=== PATIENT | female | born 1935 | race Caucasian/White ===

== ENCOUNTER 2016-09-10 12:21 | Inpatient (IN) ==
[2016-09-10 13:18] LABS: MANUAL DIFF NEEDED? NO; URINE MICRO REVIEW NEEDED? NO; URINE SOURCE CLEAN CATCH
[2016-09-10 13:21] LABS: BILIRUBIN URINE NEGATIVE (NEGATIVE); BLOOD URINE NEGATIVE (NEGATIVE); COLOR YELLOW; GLUCOSE URINE NEGATIVE (NEGATIVE); LEUKOCYTES URINE SMALL (NEGATIVE); NITRITE URINE NEGATIVE (NEGATIVE); PROTEIN URINE NEGATIVE (NEGATIVE); SP GRAVITY URINE 1.015; TURBIDITY URINE CLEAR (CLEAR); UROBILINOGEN URINE NORMAL (NORMAL)
[2016-09-10 13:22] LABS: UR EPITHELIAL CELLS <10 /HPF (<10); URINE BACTERIA 1+ /HPF; URINE CULTURE NEEDED? YES; URINE RBC <10 /HPF (<10)
[2016-09-10 13:26] LABS: INR 1.25; PROTIME 13.3 Seconds (9.2-11.7); PTT 26.6 Seconds (22.0-36.0)
[2016-09-10 13:31] LABS: BASO% 0.2 % (0.0-0.8); EOS# 0.04 X1000 (0.0-0.7); EOS% 0.9 % (0.0-10.0); HEMATOCRIT 34.4 % (37.0-47.0); HEMOGLOBIN 11.7 g/dL (12.0-16.0); LYMPH# 1.15 X1000 (1.2-3.4); LYMPH% 25.4 % (20.5-51.1); MCH 34.6 PG (27-31); MCV 101.8 FL (81-99); MONO# 0.45 X1000 (0.11-0.59); MONO% 9.9 % (1.7-9.3); MPV 10.2 FL (7.4-10.4); NEUT% 63.6 % (42.2-75.2); PLT 92 X1000 (130-400); RBC 3.38 XMIL (4.2-5.4)
[2016-09-10 13:34] LABS: UR AMPHETAMINES QUAL NONE DETECTED (NONE DETECT); UR BARBITUATES QUAL NONE DETECTED (NONE DETECT); UR BENZODIAZEPIN QUAL NONE DETECTED (NONE DETECT); UR CANNABINOIDS QUAL NONE DETECTED (NONE DETECT); UR COCAINE QUAL NONE DETECTED (NONE DETECT); UR METHADONE QUAL NONE DETECTED (NONE DETECT); UR OPIATES QUAL NONE DETECTED (NONE DETECT); UR OXYCODONE QUAL NONE DETECTED (NONE DETECT); UR PCP QUAL NONE DETECTED (NONE DETECT)
[2016-09-10 13:56] LABS: ALBUMIN 3.4 g/dL (3.5-5.0); CALCIUM 10.3 mg/dL (8.8-10.2); POTASSIUM 3.9 mmol/L (3.5-5.1); TOTAL BILIRUBIN 2.1 mg/dL (0.20-1.00); TOTAL PROTEIN 6.3 g/dL (6.3-8.3)
--- NOTE | 2016-09-10 14:50 | PROVIDER DOCUMENTATION ---
HPI-Psychological Disorder - General Source: patient, family - History of Present Illness-Psych Onset/Duration: reports: this morning Timing: reports: still present Severity: reports: mild Situational problems related to:: reports: N/A Psychiatric Complaints: reports: confused Substance Use: reports: denies Previous psych related hospitalizations?: No Patient arrived by:: private car (brought by daughter) Similar Symptoms Previously?: No Recently seen or treated by another doctor?: No <Jennifer Vuong - Last Filed: 09/10/16 17:54> <Elliott Kahn - Last Filed: 09/10/16 18:21> - General Chief Complaint: Altered Mental Status Stated Complaint: confusion Time Seen by Provider: 09/10/16 14:14 Allergies/Adverse Reactions: Patient Allergies Allergy/AdvReac Type Severity Reaction Status Date / Time No Known Allergies Allergy Verified 09/10/16 13:11 Home Medications: Home Medication List Medication Instructions Recorded Confirmed Last Taken Type Furosemide [Lasix] 20 mg PO DAILY 09/10/16 09/10/16 09/10/16 07:00 History Irbesartan [Avapro] 150 mg PO QAM 09/10/16 09/10/16 09/10/16 07:00 History Lactulose 30 ml PO BID 09/10/16 09/10/16 09/10/16 07:00 History Spironolactone 100 mg PO QAM 09/10/16 09/10/16 09/10/16 07:00 History - History of Present Illness-Psych Nature of Presenting Problem: 80 yof presents with complaint of confusion. Daughter states she went to wake pt up this morning and notice she was confused.Daughter states she was speaking about subjects that did not make sense.pt denies headache or dizziness (Jennifer Vuong) Review of Systems - Adult - REVIEW OF SYSTEMS - ADULT Constitutional: denies: chills, fever, fatique Eyes: reports: no symptoms reported Ears, Nose, Mouth & Throat: reports: no symptoms reported Cardiovascular: reports: no symptoms reported Respiratory: reports: no symptoms reported Gastrointestinal: reports: no symptoms reported Genitourinary: reports: incontinence. denies: flank pain, urinary retention Musculoskeletal: reports: no symptoms reported Integumentary: reports: no symptoms reported Neurological: denies: dizziness/vertigo, headache/migraines, slurred speech Psychiatric: reports: no symptoms reported Endocrine: reports: no symptoms reported Hematologic/Lymphatic: reports: no symptoms reported Allergic/Immunologic: reports: no symptoms reported All Other Systems: Reviewed and Negative <Jennifer Vuong - Last Filed: 09/10/16 17:54> Past History - Adult - PAST MEDICAL HISTORY-ADULT Review of Records: reports: Old Records Reviewed, Nursing Assessment Review, Medications Reviewed Major Childhood Illnesses: reports: denies history Cardiovascular: reports: A-Fib, HTN Gastrointestinal: reports: GERD, other (cirrhosis of liver) Musculoskeletal: reports: osteoporosis Endocrine/Immune: reports: other (chr) - PRIOR SURGERIES/PROCEDURES Surgical/Procedure History: reports: other (total knee, metal daniela right knee shoulder hip) - IMMUNIZATION STATUS Childhood Immunizations: See Nurse Assessment Flu Vaccine: See Nurse Assessment - FAMILY HISTORY Family History: reviewed, not pertinent - SOCIAL HISTORY Smoking: denies Substance Use: denies Living Situation: family <Jennifer Vuong - Last Filed: 09/10/16 17:54> Physical Exam-Psych Focus - Physical Exam-Psych Initial Vital Signs Reviewed: Yes Appearance: appropriate appearance, appropriate insight, neat, no apparent distress, alert, slow to respond Neurological: alert, normal mood/affect, calm, 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, oriented x 3 Behavior/Eye Contact/Speech: cooperative, good eye contact, normal speech Thoughts/Hallucinations: no apparent hallucination HENMT: normocephalic/atraumatic, moist mucous membranes, normal ENT inspection, TMs normal, pharynx normal Neck: non-tender, full range of motion, supple, normal inspection Respiratory: chest non-tender, lungs clear, normal breath sounds, no pleuratic chest pain, no respiratory distress, no accessory muscle use Cardiovascular: normal peripheral pulses, regular rate, rhythm, no edema, no gallop, no JVD, no murmur Abdominal Exam: normal bowel sounds, non tender, soft, no organomegaly, no pulsatile mass Lymphatic: no adenopathy Back Exam: normal inspection, no CVA tenderness, no vertebral tenderness Extremity: normal range of motion, non-tender, normal inspection Integumentary: normal color, normal turgor, warm/dry <Jennifer Vuong - Last Filed: 09/10/16 17:54> Departure <Jennifer Vuong - Last Filed: 09/10/16 17:54> - Departure Time of Disposition Order: 18:20 <Elliott Kahn - Last Filed: 09/10/16 18:21> - Departure Referrals: Edwin Maria MD [Primary Care Provider] - Forms: Return to School/Parent Work Attestation - Scribe Verification/Attestation Scribe:: Jennifer Vuong Acting as Scribe for:: Elliott Kahn Scribe documention review:: This chart was documented by a scribe and accurately reflects the service the provider performed and the decisions made by the provider. <Jennifer Vuong - Last Filed: 09/10/16 17:54> Physician Attestation
[2016-09-10] MEDS ORDERED: LACTULOSE PO ONE (16:38)
[2016-09-10] MEDS ORDERED: LASIX IV ONE (16:38)
--- NOTE | 2016-09-10 18:43 | PROVIDER DOCUMENTATION ---
HPI-Neurological Disorder - General Chief Complaint: Altered Mental Status Stated Complaint: confusion Time Seen by Provider: 09/10/16 14:14 Source: patient, family Allergies/Adverse Reactions: Patient Allergies Allergy/AdvReac Type Severity Reaction Status Date / Time No Known Allergies Allergy Verified 09/10/16 13:11 Home Medications: Home Medication List Medication Instructions Recorded Confirmed Last Taken Type Furosemide [Lasix] 20 mg PO DAILY 09/10/16 09/10/16 09/10/16 07:00 History Irbesartan [Avapro] 150 mg PO QAM 09/10/16 09/10/16 09/10/16 07:00 History Lactulose 30 ml PO BID 09/10/16 09/10/16 09/10/16 07:00 History Spironolactone 100 mg PO QAM 09/10/16 09/10/16 09/10/16 07:00 History - History of Present Illness-Neuro Nature of Presenting Problem: 80 Y/O F PRESENTED TO ER WITH HER FAMILY COMPLAINING OF A MOMENTARY CONFUSION AND MAYBE SLURRED SPEECH AFTER SHE WOKE UP THIS MORNING. HER DAUGHTER NOTICED ALSO THAT SHE IS NOT FOLLOWING HER COMMANDS AND THAT SHE IS TALKING NON-SENSE. PATIENT ADMITS TO CONFUSION. SHE DENIES ANY OTHER SYMPTOM HOWEVER. SHE HAS A HISTORY OF LIVER CIRRHOSIS STAGE 4 WELL AFIB FOR WHICH SHE IS NOT TAKING ANY ANTICOAGULATION. Timing: reports: gone now Character of Altered Mental Status: reports: confused, trouble concentrating Any recent trauma/injury?: reports: none Character of Deficits: reports: impaired speech New weakness or altered sensation location:: reports: none Cognitive Baseline: alert, oriented x3 Gait Baseline: uses a walker Associated Symptoms: reports: denies symptoms Similar Symptoms Previously?: No Recently seen or treated by another doctor?: Yes Review of Systems - Adult - REVIEW OF SYSTEMS - ADULT Constitutional: reports: no symptoms reported Eyes: reports: no symptoms reported Ears, Nose, Mouth & Throat: reports: no symptoms reported Cardiovascular: reports: irregular heart rate Gastrointestinal: reports: no symptoms reported Genitourinary: denies: dysuria, flank pain, hematuria, incontinence Musculoskeletal: reports: no symptoms reported Integumentary: reports: no symptoms reported Neurological: reports: slurred speech, other (APRAXIA) Allergic/Immunologic: reports: no symptoms reported Past History - Adult - PAST MEDICAL HISTORY-ADULT Review of Records: reports: Nursing Assessment Review, Medications Reviewed Major Childhood Illnesses: reports: denies history Cardiovascular: reports: A-Fib, HTN, other (SEE NURSE NOTE) Physical Exam- Neurological - Physical Exam-Neuro Initial Vital Signs Reviewed: Yes General Appearance: appears well, obese Eye Exam: right eye: abnormal EOM, bilateral eye: PERRL HENMT: normocephalic/atraumatic Head Injury: no evidence of injury Neck: full range of motion, supple Respiratory: lungs clear Cardiovascular: regular rate, rhythm Abdominal Exam: normal bowel sounds, non tender, soft Peripheral Pulses: dorsalis-pedis (R): 1+, dorsalis-pedis (L): 1+ Extremity: normal range of motion, 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 negative: facial asymmetry, facial droop Coordination/Gait: normal finger to nose Motor/Sensory: no motor deficit, no sensory deficit Integumentary: normal color Psych/Mental Status: normal mood/affect, oriented x 3 Progress - PLAN OF CARE/RESULTS Progress/Plan/Lab Results: Vital Signs - 24 hr 09/10/16 12:26 Temperature 97.7 F Pulse Rate 98 H Respiratory 18 Rate Blood Pressure 112/50 O2 Sat by Pulse 100 Oximetry Laboratory Tests 09/10/16 09/10/16 09/10/16 12:35 12:35 12:35 WBC 4.53 L RBC 3.38 L Hgb 11.7 L Hct 34.4 L MCV 101.8 H MCH 34.6 H MCHC 34.0 RDW Std Deviation 14.2 Plt Count 92 L MPV 10.2 Immature Gran % (Auto) 0.0 Neut % (Auto) 63.6 Lymph % (Auto) 25.4 [place] % (Auto) 9.9 H Eos % (Auto) 0.9 Baso % (Auto) 0.2 Immature Gran # (Auto) 0.00 Neut # (Auto) 2.88 Lymph # (Auto) 1.15 L [place] # (Auto) 0.45 Eos # (Auto) 0.04 Baso # (Auto) 0.01 PT INR PTT (Actin FS) Sodium 139 Potassium 3.9 Chloride 102 Carbon Dioxide 22 L Anion Gap 15 BUN 26 H Creatinine 1.0 H Estimated GFR/1.73 m2 54 BUN/Creatinine Ratio 26 Glucose 221 H Calculated Osmolality 289 Calcium 10.3 H Total Bilirubin 2.10 H AST 50 H ALT 35 Alkaline Phosphatase 85 Ammonia Creatine Kinase 46 Troponin T Total Protein 6.3 Albumin 3.4 L Globulin 2.9 Albumin/Globulin Ratio 1.2 Urine Source Urine Color Urine Turbidity Urine pH Ur Specific [place] Urine Protein Ur Glucose (Stick) Ur Ketones (Stick) Urine Blood Urine Nitrite Urine Bilirubin Urobilinogen Dipstick Urine Leukocytes Urine WBC (Auto) Urine RBC (Auto) U Epithel Cells (Auto) Urine Bacteria (Auto) Urine Opiates Screen Ur Oxycodone Screen Ur Methadone, Qual Ur Barbiturates Screen Ur Phencyclidine Scrn Ur Amphetamines Screen U Benzodiazepines Scrn Urine Cocaine Screen U Cannabinoids Screen Plasma/Serum Ethyl Alc 09/10/16 09/10/16 09/10/16 12:35 12:35 12:35 WBC RBC Hgb Hct MCV MCH MCHC RDW Std Deviation Plt Count MPV Immature Gran % (Auto) Neut % (Auto) Lymph % (Auto) [place] % (Auto) Eos % (Auto) Baso % (Auto) Immature Gran # (Auto) Neut # (Auto) Lymph # (Auto) [place] # (Auto) Eos # (Auto) Baso # (Auto) PT 13.3 H INR 1.25 PTT (Actin FS) 26.6 Sodium Potassium Chloride Carbon Dioxide Anion Gap BUN Creatinine Estimated GFR/1.73 m2 BUN/Creatinine Ratio Glucose Calculated Osmolality Calcium Total Bilirubin AST ALT Alkaline Phosphatase Ammonia Creatine Kinase Troponin T < 0.010 Total Protein Albumin Globulin Albumin/Globulin Ratio Urine Source CLEAN CATCH Urine Color YELLOW Urine Turbidity CLEAR Urine pH 6.0 Ur Specific [place] 1.015 Urine Protein NEGATIVE Ur Glucose (Stick) NEGATIVE Ur Ketones (Stick) NEGATIVE Urine Blood NEGATIVE Urine Nitrite NEGATIVE Urine Bilirubin NEGATIVE Urobilinogen Dipstick NORMAL Urine Leukocytes SMALL A Urine WBC (Auto) 10-20 A Urine RBC (Auto) <10 U Epithel Cells (Auto) <10 Urine Bacteria (Auto) 1+ Urine Opiates Screen Ur Oxycodone Screen Ur Methadone, Qual Ur Barbiturates Screen Ur Phencyclidine Scrn Ur Amphetamines Screen U Benzodiazepines Scrn Urine Cocaine Screen U Cannabinoids Screen Plasma/Serum Ethyl Alc 09/10/16 09/10/16 12:35 12:35 WBC RBC Hgb Hct MCV MCH MCHC RDW Std Deviation Plt Count MPV Immature Gran % (Auto) Neut % (Auto) Lymph % (Auto) [place] % (Auto) Eos % (Auto) Baso % (Auto) Immature Gran # (Auto) Neut # (Auto) Lymph # (Auto) [place] # (Auto) Eos # (Auto) Baso # (Auto) PT INR PTT (Actin FS) Sodium Potassium Chloride Carbon Dioxide Anion Gap BUN Creatinine Estimated GFR/1.73 m2 BUN/Creatinine Ratio Glucose Calculated Osmolality Calcium Total Bilirubin AST ALT Alkaline Phosphatase Ammonia 63 H Creatine Kinase Troponin T Total Protein Albumin Globulin Albumin/Globulin Ratio Urine Source Urine Color Urine Turbidity Urine pH Ur Specific [place] Urine Protein Ur Glucose (Stick) Ur Ketones (Stick) Urine Blood Urine Nitrite Urine Bilirubin Urobilinogen Dipstick Urine Leukocytes Urine WBC (Auto) Urine RBC (Auto) U Epithel Cells (Auto) Urine Bacteria (Auto) Urine Opiates Screen NONE DETECTED Ur Oxycodone Screen NONE DETECTED Ur Methadone, Qual NONE DETECTED Ur Barbiturates Screen NONE DETECTED Ur Phencyclidine Scrn NONE DETECTED Ur Amphetamines Screen NONE DETECTED U Benzodiazepines Scrn NONE DETECTED Urine Cocaine Screen NONE DETECTED U Cannabinoids Screen NONE DETECTED Plasma/Serum Ethyl Alc HEPATIC ENCEPHALOPATHY IS RULED OUT. LIVER ENZYMES AND AMMONIA ARE WITHIN NORMAL RANGE. IV LASIX AND ORAL LACTULOSE WERE GIVEN. CT HEAD IS PENDING TO RULE OUT STROKE. PATIENT WAS DIAGNOSED WITH AFIB RECENTLY HOWEVER HER PRIVATE DOCTORS FAVORED THAT SHE STAY OFF ANTICOAGULATION. I EXPLAINED TO THE FAMILY THE RISK AND BENEFIT FROM STARTING ANTICOAGULATION FOR AFIB TO LOWER RISK OF STROKE VS COMPLICATIONS THAT CAN OCCUR FROM ANTICOAGULATION ESPECIALLY HIGH RISK OF BLEEDING. WE ALL AGREED THAT THE PATIENT WILL BENEFIT MORE FROM NOT TAKING THE ANTICOAGULATION. - CONSULTS/PCP/HOSPITALIST Notification #1 *Consult/PCP/Hospitalist*: DR. PIKE Time Discussed: 18:44 Reason/Comments: tia Consult Disposition: Admit Departure - Departure Time of Disposition Order: 18:45 DIAGNOSIS: TIA (transient ischemic attack) Disposition: ADMITTED INPATIENT 09 Certified Medical Emergency: Emergent Condition: Fair Referrals: Edwin Maria MD [Primary Care Provider] - Forms: Return to School/Parent Work
--- NOTE | 2016-09-10 18:57 | Diag Imaging Result Document ---
PROCEDURE NAME: HEAD W/O CONTRAST - 09/10/[address]: A CT dose reduction protocol was used. COMPARISON: None. FINDINGS: The ventricles and sulci are normal in size and contour. No intracranial mass or hemorrhage. There is some mild scattered chronic microvascular disease. The skull is intact. The sinuses, mastoids, and middle ears are clear. IMPRESSION: No acute disease. [facility]
[2016-09-11] MEDS ORDERED: ZOFRAN IV PRN (00:29)
--- NOTE | 2016-09-11 03:56 | HISTORY AND PHYSICAL ---
CHIEF COMPLAINT: Altered mental status. HISTORY OF PRESENTING ILLNESS: A 80-year-old female with a history of cirrhosis, hypertension, atrial fibrillation, was brought to the emergency department due to 1-day history of patient having some confusion and some mental status changes. Family was concerned that they were told that previously when she has any confusion it could be related to her cirrhosis and subsequently brought her to the emergency department. She was evaluated in the ER. Due to her presenting symptoms, it was thought that she would need hospitalization for further management. At the time of my examination, she had denied any headache, fever, chills, chest pain, shortness of breath, hemoptysis or weight changes. States she feels better. PAST MEDICAL HISTORY: Cirrhosis, hypertension, atrial fibrillation. PAST SURGICAL HISTORY: None. ALLERGIES: No known drug allergies. CURRENT MEDICATIONS: As listed in MAR. SOCIAL HISTORY: She denies any history of smoking, alcohol or illicit drug use. FAMILY HISTORY: Positive for coronary disease in mother and father. REVIEW OF SYSTEMS: [employer] point systems is as in HPI. Other systems negative. PHYSICAL EXAMINATION: GENERAL: Cooperative, friendly female. She is resting more comfortably now. VITAL SIGNS: Temperature 97.7 degrees, pulse 98, respiration 18, blood pressure 112/50. She is saturating 100%. HEENT: Atraumatic, normocephalic. Extraocular movements intact. PERRLA. NECK: Supple. CHEST: Clear to auscultation. CARDIOVASCULAR: Regular rate and rhythm. ABDOMEN: Soft. Positive bowel sounds. EXTREMITIES: No edema. NEUROLOGIC: She is awake, alert, oriented x2. GENITOURINARY: No bladder distention. SKIN: Skin is warm. LABORATORIES AND STUDIES: Sodium 139, potassium 3.9, chloride 102, CO2 of 22, BUN is 26, creatinine is 1.0, glucose is 221. Ammonia level is 63. UA shows some small leukocytes and +1 bacteria. WBCs 4.53, hemoglobin 11.7, hematocrit 34.4, platelets 92,000. ASSESSMENT: A 80-year-old female with a history of cirrhosis, hypertension and atrial fibrillation who presented to emergency department with 1-day history of confusion. She will need hospitalization for further management. 1. Altered mental status, multifactorial. 2. Suspected transient ischemic attack. We need to rule out cerebrovascular accident. 3. Cirrhosis with mildly elevated ammonia level, possibly encephalopathy mild. 4. Suspected urinary tract infection. 5. History of atrial fibrillation. PLAN: 1. We will admit patient to medical floor with telemetry. 2. We will continue with neuro checks. 3. We will schedule patient for MRI of the brain. 4. Continue with lactulose. 5. We will start patient on empiric antibiotics and check urine cultures. 6. We will continue with rate control. 7. Put patient on DVT prophylaxis with SCD. 8. We will continue to follow and reassess.
[2016-09-11] MEDS: NS 1,000 ML IV SCH ×2 (04:58→21:41)
[2016-09-11] MEDS: ROCEPHIN 1 GM/NS 50 ML IV SCH (04:58)
[2016-09-11] MEDS: ALDACTONE PO SCH (09:00)
[2016-09-11] MEDS: LASIX PO SCH (09:00)
[2016-09-11] MEDS: AVAPRO PO SCH (09:00)
[2016-09-11] MEDS: LACTULOSE PO SCH ×2 (09:00→21:41)
--- NOTE | 2016-09-11 12:58 | PROGRESS NOTE ---
DATE: 09/11/2016 SUBJECTIVE: Ms. Koenig is a 80-year-old, I think she is followed by Dr. Maria and has a history of cirrhosis, hypertension, atrial fib. She was brought to the emergency room because of altered mental status and admitted. I believe it started on Tuesday and apparently was worse yesterday. She has some confusion. She did miss a dose or 2 of her lactulose. She has had some mental status changes. Apparently, initially, when they 1st found she has cirrhosis I think she had this kind of encephalopathy. No focal neurologic deficits reported. No sign of seizure activity. PAST MEDICAL HISTORY: Reviewed again. Cirrhosis, hypertension, atrial fibrillation. PAST SURGICAL HISTORY: No surgical history. PERTINENT DATA: On presentation there was question of TIA but I do not see any history of focal deficit. LABORATORY DATA: White count 4530, hematocrit 34, platelet count 92,000. Chemistries, sodium 139, potassium 3.9, chloride 102, bicarbonate 22, BUN 26, creatinine 1.0. Calcium is 10.3, AST 50, ALT 35, ammonia was 63 with normal being 11 to 51. OBJECTIVE: General: Today she is sitting up beside the bed. She said she feels back to normal. She is oriented x3. Her daughter was there and felt like she was back to baseline. Vital signs: Temperature 97.5 degrees, pulse 99, respirations 20, blood pressure 135/55. HEENT: Pupils are equal, round. CVP less than 6 cm. Lungs: Clear in all lung ny. Cardiovascular: Regular rate without murmur or S3. Abdomen: Soft. Skin: Warm and dry. Her lactulose, she is back on 30 mL twice a day. LABORATORY DATA: Noted, we reviewed all of her labs. She does have an elevated MCV, hemoglobin 11.7, hematocrit 34, she denies any abdominal pain. No fever or chills. ASSESSMENT/PLAN: Metabolic encephalopathy. Suspect this is related to the liver, may be multifactorial. She seems back to baseline. We are going to feed her a regular diet. No sign of subacute bacterial peritonitis or peritonitis in general. The bowels have been moving okay. Suspected urinary tract infection for which she is getting treated, ceftriaxone 1 g q.24 hours. She is on lactulose 30 mL b.i.d. Ammonia level was at 60, which is not terrible. She is on spironolactone 100 mg q.a.m. which she was on Lasix 20 mg daily, Avapro 150 mg q.a.m.
[2016-09-12] MEDS ORDERED: MELATONIN PO ONE (00:03)
[2016-09-12] MEDS: ROCEPHIN 1 GM/NS 50 ML IV SCH (00:24)
[2016-09-12 07:13] LABS: HEMATOCRIT 28.8 % (37.0-47.0); HEMOGLOBIN 9.7 g/dL (12.0-16.0); MCH 34.8 PG (27-31); MCHC 33.7 g/dL (33-37); MCV 103.2 FL (81-99); MPV 9.9 FL (7.4-10.4); RBC 2.79 XMIL (4.2-5.4)
[2016-09-12 07:52] LABS: AGAP 10; BUN 28 mg/dL (8-22); CHLORIDE 112 mmol/L (98-107); COSMO 289; POTASSIUM 3.6 mmol/L (3.5-5.1); SODIUM 142 mmol/L (136-145); TCO2 20 mmol/L (25-35)
[2016-09-12] MEDS: LASIX PO SCH (08:11)
[2016-09-12] MEDS: ALDACTONE PO SCH (08:11)
[2016-09-12] MEDS: LACTULOSE PO SCH ×2 (08:11→21:08)
[2016-09-12] MEDS: AVAPRO PO SCH (08:12)
[2016-09-12 08:16] LABS: CALCIUM 8.8 mg/dL (8.8-10.2)
--- NOTE | 2016-09-12 16:52 | PROGRESS NOTE ---
DATE: 09/12/2016 SUBJECTIVE: Ms. Koenig feels better. She feels pretty weak, but she is much better. No confusion, alert and oriented x3. Her granddaughter as it is, is in the room with her and she says she looks like she feels a lot better. She is eating well. OBJECTIVE: Vital signs: Temperature 98.4 degrees, pulse 80, respirations 20, blood pressure 120/53. HEENT: Pupils are equal and round. CVP less than 6 cm. Lungs: Clear in all lung ny. Cardiovascular: Regular rhythm and rate without murmur or S3. The urine output was 1200 mL. LABORATORY: From the , white count 4890, hematocrit 28, platelet count 66,000. Chemistry: Sodium 142, potassium 3.6, chloride 112, BUN 20, creatinine 0.6. ASSESSMENT AND PLAN: 1. Metabolic encephalopathy. I think this is largely related to her liver cirrhosis. She is back on her lactulose and seems to be doing much better. 2. General weakness. We will see how she does with Physical Therapy tomorrow. 3. Nutrition, appears to be doing good. 4. We are treating her for urinary tract infection. She did have some sediment, but no growth in the urine. Review of her orders, she is getting Rocephin 1 g every 24 hours, spironolactone 100 mg q.a.m., getting some fluid at 80 mL an hour, normal saline, lactulose 30 mL b.i.d., Lasix 20 mg a day, Avapro 150 mg q.a.m. 5. Review of her lab unremarkable from today. Creatinine 0.6. Continue present regimen. Start physical therapy tomorrow, see how we do. Maybe can go home tomorrow.
[2016-09-13] MEDS: ROCEPHIN 1 GM/NS 50 ML IV SCH (00:08)
[2016-09-13] MEDS: NS 1,000 ML IV SCH ×2 (00:24→06:28)
[2016-09-13] MEDS ORDERED: MELATONIN PO ONE (01:08)
[2016-09-13] MEDS: ALDACTONE PO SCH (08:26)
[2016-09-13] MEDS: LASIX PO SCH (08:26)
[2016-09-13] MEDS: LACTULOSE PO SCH (08:26)
[2016-09-13] MEDS: AVAPRO PO SCH (08:26)
--- NOTE | 2016-09-13 13:18 | DISCHARGE SUMMARY ---
ADMISSION DATE: 09/11/2016 DISCHARGE DATE: This is a 80-year-old female with history of cirrhosis, hypertension, and atrial fibrillation. Was brought into the emergency room on 09/11/2016 one day history of patient having some confusion and some mental status changes. In retrospect, I think she was concerned about hemorrhoids. Was not taking her lactulose. Ammonia level was 60-70. She seemed to be oriented and her lethargy improved fairly quickly. Just putting her back on her lactulose. She is a little bit generally weak. She did not have any respiratory difficulty. No sign of tenderness to suggest peritonitis. Gave her a little bit of fluids and she was eating well. [place] good. Mental status seemed to be back to normal. Does complain of some right knee pain. She is status post right total knee arthroplasty and she says this is pretty chronic. She did request home health and I did suggest she get a sitz bath for her hemorrhoids and then soak at least once a day. DISCHARGE MEDICATIONS: Really put her back on her Lasix 20 mg a day, Avapro 150 mg daily, lactulose 30 mL p.o. b.i.d., Prilosec 40 mg a day, Metamucil I think a packet a day as needed, and spironolactone 100 mg a day. PLAN: We will discharge her home on 09/13/2016. Follow up with her primary care.
[2016-09-13 15:03] VITALS: BP 135/60
== END 2016-09-13 15:51 | disposition home health service (06) ==
LOC: ED 12:21 → 3N 09-11 03:10
PROVIDERS: ATTEND Emergency Medicine

== ENCOUNTER 2017-02-08 09:37 | Inpatient (IN) ==
--- NOTE | 2017-02-08 10:34 | EKG Report ---
Test Performed on : 02/08/2017 10:20:43 AM Test Reason : No Order in [employer] Blood Pressure : / mmHG Vent. Rate : 054 BPM Atrial Rate : 054 BPM P-R Int : 154 ms QRS Dur : 076 ms QT Int : 418 ms P-R-T Axes : 093 -05 013 degrees QTc Int : 396 ms Sinus bradycardia. with premature atrial complexes. Low voltage QRS Cannot rule out Anterior infarct (cited on or before 23-DEC-2016) Abnormal ECG When compared with ECG of 23-DEC-2016 13:24, premature atrial complexes. are now present Vent. rate has decreased BY 26 BPM QT has shortened Unconfirmed Result
[2017-02-08] MEDS ORDERED: ZOFRAN IV ONE (10:41)
[2017-02-08] MEDS ORDERED: MORPHINE IV ONE (10:41)
--- NOTE | 2017-02-08 11:24 | Diag Imaging Result Doc PS360 ---
EXAM: CT ABDOMEN W/O CONTRAST HISTORY: back pain TECHNIQUE: CT of the abdomen without contrast with dose reduction (clarity.) COMMENT: There is cirrhosis with extensive varices particularly around the esophagus and gastric fundus. There is fluid in the right subphrenic space. There are calcified gallstones in the gallbladder. There is some stranding in the fat around the gallbladder and hepatic flexure of the colon. The appendix is normal in appearance. The spleen is within normal limits in size measuring slightly less than 12 cm in transverse dimension. There is no evidence of hydronephrosis or stones in the kidneys. No evidence of abdominal aortic aneurysm is present. There is some apparent fluid in a ventral or umbilical hernia. There is diverticulosis in the visualized portions of the left colon. There is osteopenia of the regional skeleton with vacuum joint phenomenon in the sacroiliac joints and degenerative disc changes in the lower lumbar spine. There is some atelectasis or fibrosis in the left lung base and posterior costophrenic sulcus of the right lower lobe. IMPRESSION: Cholelithiasis. The possibility of cholecystitis or right-sided colitis cannot be excluded. Cirrhosis with varices and mild ascites. Electronically signed by Madi Munroe 02/08/2017 11:22 AM
[2017-02-08 11:48] LABS: MANUAL DIFF NEEDED? NO
[2017-02-08 11:54] LABS: BASO% 0.1 % (0.0-0.8); EOS# 0.02 X1000 (0.0-0.7); EOS% 0.2 % (0.0-10.0); HEMATOCRIT 36.2 % (37.0-47.0); HEMOGLOBIN 12.2 g/dL (12.0-16.0); IMM GRAN# 0.03 X1000 (0.0-0.04); IMM GRAN% 0.4 % (0.0-0.5); LYMPH# 1.76 X1000 (1.2-3.4); LYMPH% 21.1 % (20.5-51.1); MCH 34.3 PG (27-31); MCHC 33.7 g/dL (33-37); MCV 101.7 FL (81-99); MONO# 1.19 X1000 (0.11-0.59); MONO% 14.3 % (1.7-9.3); MPV 9.6 FL (7.4-10.4); NEUT% 63.9 % (42.2-75.2); PLT 111 X1000 (130-400); RBC 3.56 XMIL (4.2-5.4)
[2017-02-08 11:58] LABS: INR 1.3; PROTIME 13.9 Seconds (9.2-11.7)
[2017-02-08 12:09] LABS: AGAP 10; ALKALINE PHOSPHATASE 120 U/L (32-104); BUN 21 mg/dL (8-22); CALCIUM 9.8 mg/dL (8.8-10.2); CHLORIDE 98 mmol/L (98-107); COSMO 273; GOT 53 U/L (10-30); GPT 35 U/L (10-36); LIPASE 52 U/L (13-60); POTASSIUM 4.1 mmol/L (3.5-5.1); SODIUM 134 mmol/L (136-145); TCO2 26 mmol/L (25-35); TOTAL BILIRUBIN 2.64 mg/dL (0.20-1.00); TOTAL PROTEIN 5.7 g/dL (6.3-8.3)
--- NOTE | 2017-02-08 12:37 | Diag Imaging Result Doc PS360 ---
CT PELVIS W/O CONTRAST - 02/08/2017 INDICATION: back pain TECHNIQUE: A CT dose reduction protocol was used. COMPARISON: None FINDINGS: There is inflammatory edema about the cecum consistent with colitis. There are numerous diverticula of the sigmoid colon. There is trace pelvic free fluid. Urinary bladder, uterus, and rectum are grossly normal. IMPRESSION: See findings. Electronically signed by Fransisco June 02/08/2017 12:34 PM
--- NOTE | 2017-02-08 12:44 | Diag Imaging Result Doc PS360 ---
EXAM: US GB < RUQ (LIMITED) HISTORY: abd pain, back pain, abnormal CT TECHNIQUE: Right upper quadrant ultrasound COMMENT: The pancreatic head and body are normal in appearance. The aorta and inferior vena cava are unremarkable. Liver is inhomogeneous and lobulated in contour. There is antegrade flow in the portal vein. The common bile duct is dilated at 9 mm. No identified intraductal stones are present. There is sludge throughout the gallbladder. The gallbladder is somewhat contracted and there is a positive sonographic Souza sign. Right kidneys without evidence of hydronephrosis or mass. IMPRESSION: 1. Cirrhosis. 2. Cholecystitis. 3. Dilatation the common bile duct which may indicate distal common bile duct stones or other obstructing lesions. Electronically signed by Madi Munroe 02/08/2017 12:42 PM
[2017-02-08] MEDS ORDERED: ZOSYN 3.375 GM in NS 50 ML IV ONE (12:55)
[2017-02-08] MEDS ORDERED: NS 1,000 ML IV ONE (13:01)
[2017-02-08 13:52] LABS: URINE CULTURE NEEDED? NO; URINE MICRO REVIEW NEEDED? NO; URINE SOURCE CLEAN CATCH
[2017-02-08 13:57] LABS: BILIRUBIN URINE NEGATIVE (NEGATIVE); BLOOD URINE NEGATIVE (NEGATIVE); COLOR YELLOW; GLUCOSE URINE NEGATIVE (NEGATIVE); LEUKOCYTES URINE NEGATIVE (NEGATIVE); NITRITE URINE NEGATIVE (NEGATIVE); PROTEIN URINE NEGATIVE (NEGATIVE); SP GRAVITY URINE 1.012; TURBIDITY URINE CLEAR (CLEAR); UR EPITHELIAL CELLS <10 /HPF (<10); URINE BACTERIA NEGATIVE /HPF; URINE RBC <10 /HPF (<10); URINE WBC <10 /HPF (<10); UROBILINOGEN URINE 4 mg/dL (NORMAL)
[2017-02-08] MEDS: NS 1,000 ML IV SCH ×2 (14:09→23:41)
[2017-02-08] MEDS ORDERED: LACTULOSE PO ONE (15:22)
[2017-02-08] MEDS: MORPHINE IV PRN ×3 (15:38→23:41)
[2017-02-08] MEDS: ZOFRAN IV PRN ×2 (15:39→20:33)
--- NOTE | 2017-02-08 17:46 | PROVIDER DOCUMENTATION ---
This chart was entered by Marilou Machuca Scribe, acting as scribe for Miguel Moore PA. HPI-Musculoskeletal Pain/Inj - GENERAL Chief Complaint: Abdominal Pain Stated Complaint: ABD PAIN Time Seen by Provider: 02/08/17 09:46 Source: patient - HX OF PRESENT ILLNESS-MUSKULOSKELTAL Nature of Presenting Problem: 81 yo F presents to ED with cc of spontaneous-onset, nonradiating lower back pain x 2 days. Pt reports painful ROM and painful ambulation. Pt denies any new weakness or incontinence (pt has urinary incontinence as baseline). Pt denies injury. She reports hx of occasional minor lower back pain. Upon arrival to ED, pt is mildly distressed as she self-ambulates to room. Severity in ED: mild, moderate Onset/Duration: abrupt, 2 days ago Timing: still present Modifying Factors: improves with: rest. worse with: movement, palpation Any recent injury?: No Similar Symptoms Previously?: Yes - BACK & NECK PAIN/INJURY Back/Neck Pain Location: reports: lumbar spine, paraspinous muscles Back/Neck Pain Radiation: denies: headache, shoulders, arm(s), Buttocks, Upper Legs, Lower Legs, Feet, Other Associated Symptoms: denies: loss of bowel control, fever, numbness in legs/feet , sensory/motor loss, tingling in legs/feet History of Chronic Neck or Back Pain?: No Review of Systems - Adult - REVIEW OF SYSTEMS - ADULT Constitutional: reports: no symptoms reported. denies: chills, fever Eyes: reports: no symptoms reported. denies: discharge, dry eyes Ears, Nose, Mouth & Throat: reports: no symptoms reported. denies: ear pain, throat pain Cardiovascular: reports: no symptoms reported. denies: edema, heart murmur Respiratory: reports: no symptoms reported. denies: cough, shortness of breath Gastrointestinal: reports: no symptoms reported. denies: nausea, vomiting Genitourinary: reports: no symptoms reported. denies: dysuria, hematuria Musculoskeletal: reports: back pain (lumbar) Integumentary: reports: no symptoms reported. denies: hives, rash Neurological: reports: no symptoms reported. denies: loss of balance, numbness Psychiatric: reports: no symptoms reported. denies: anxiety, depression Endocrine: reports: no symptoms reported. denies: cold intolerance, heat intolerance Hematologic/Lymphatic: reports: no symptoms reported. denies: blood clots, prolonged bleeding Allergic/Immunologic: reports: no symptoms reported. denies: allergic reactions , asthma All Other Systems: Reviewed and Negative Past History - Adult - PAST MEDICAL HISTORY-ADULT Review of Records: reports: Old Records Reviewed, Nursing Assessment Review, Medications Reviewed Major Childhood Illnesses: reports: denies history Cardiovascular: reports: A-Fib, HTN, other (SEE NURSE NOTE) - PRIOR SURGERIES/PROCEDURES Surgical/Procedure History: reports: joint replacement (knee), other (toe/ cateract) - IMMUNIZATION STATUS Childhood Immunizations: See Nurse Assessment Flu Vaccine: See Nurse Assessment Physical Exam-Injury Related - Physical Exam-Injury Related Initial Vital Signs Reviewed: Yes General Appearance: appears well, alert, mild distress Eyes: PERRL/EOMI, pink conjunctivae Head, Ears, Nose, Mouth & Throat: normocephalic/atraumatic, moist mucous membranes, normal ENT inspection Neck: non-tender, full range of motion, supple Respiratory: chest non-tender, lungs clear, normal breath sounds Cardiovascular: normal peripheral pulses, regular rate, rhythm Abdominal Exam: normal bowel sounds, soft, tenderness (RUQ) Back Exam: vertebral tenderness (lumbar), other (painful lumbar ROM; paraspinal tenderness) Progress - PLAN OF CARE/RESULTS Progress/Plan/Lab Results: Vital Signs - 8 hr 02/08/17 10:01 02/08/17 13:41 Temperature 98.0 F Pulse Rate 59 L 67 Respiratory Rate 16 17 Blood Pressure 126/37 O2 Sat by Pulse Oximetry 100 Laboratory Results - last 24 hr 02/08/17 02/08/17 02/08/17 11:30 11:30 11:30 WBC 8.33 RBC 3.56 L Hgb 12.2 Hct 36.2 L MCV 101.7 H MCH 34.3 H MCHC 33.7 RDW Std Deviation 15.0 H Plt Count 111 L MPV 9.6 Immature Gran % (Auto) 0.4 Neut % (Auto) 63.9 Lymph % (Auto) 21.1 [place] % (Auto) 14.3 H Eos % (Auto) 0.2 Baso % (Auto) 0.1 Immature Gran # (Auto) 0.03 Neut # (Auto) 5.32 Lymph # (Auto) 1.76 [place] # (Auto) 1.19 H Eos # (Auto) 0.02 Baso # (Auto) 0.01 PT 13.9 H INR 1.30 Sodium 134 L Potassium 4.1 Chloride 98 Carbon Dioxide 26 Anion Gap 10 BUN 21 Creatinine 0.8 Estimated GFR/1.73 m2 > 60 BUN/Creatinine Ratio 26 Glucose 133 H Calculated Osmolality 273 Calcium 9.8 Total Bilirubin 2.64 H AST 53 H ALT 35 Alkaline Phosphatase 120 H Total Protein 5.7 L Albumin 3.0 L Globulin 2.7 Albumin/Globulin Ratio 1.1 Lipase 52 Orders Category Date Time Status Admit - [facility] Routine AdmDCTranf 02/08/17 13:01 Ordered Activity - Bed Rest with BRP ORDERED Care 02/08/17 13:01 Active Call Admitting on Arrival AT ADMISSION Care 02/08/17 13:02 Active Resuscitation Status Routine Care 02/08/17 13:01 Ordered Saline Loc DIRECTED Care 02/08/17 10:42 Active Saline Loc DIRECTED Care 02/08/17 13:01 Active Vital Signs Order ROUTINE Care 02/08/17 13:01 Active Z-Document. for Tele Applied ORDERED Care 02/08/17 13:02 Completed NPO Diet 02/08/17 13:[address] ABDOMEN W/O CONTRAST [CT] Stat Exams 02/08/17 10:[address] PELVIS W/O CONTRAST [CT] Stat Exams 02/08/17 11:34 Completed US GB < RUQ (LIMITED) [US] Stat Exams 02/08/17 11:45 Completed CBC WITH ELECTRONIC DIFF [HEME] Stat Lab 02/08/17 11:30 Completed COMPREHENSIVE METABOLIC PANEL [CHEM] Stat Lab 02/08/17 11:30 Completed LIPASE [CHEM] Stat Lab 02/08/17 11:30 Completed PROTIME WITH INR [COAG] Stat Lab 02/08/17 11:30 Completed URINALYSIS W/POSS RFLX CULT-1 [URINALYSIS] Stat Lab 02/08/17 13:49 Completed 0.9% Sodium Chloride Inj [Ns] 1,000 ml Med 02/08/17 12:56 Active IV 75 mls/hr 0.9% Sodium Chloride Inj [Ns] 1,000 ml Med 02/08/17 13:01 Active IV 75 mls/hr Morphine Med 02/08/17 13:01 Active 2 mg IV Q2H PRN PRN Morphine Med 02/08/17 10:41 Discontinued 4 mg IV NOW ONE Ondansetron [Zofran] Med 02/08/17 10:41 Discontinued 4 mg IV NOW ONE Ondansetron [Zofran] Med 02/08/17 13:01 Active 4 mg IV Q4H PRN PRN Piperacillin/Tazobactam [Zosyn] 3.375 gm Med 02/08/17 12:55 Discontinued 0.9% Sodium Chloride Inj [Ns] 50 ml IV NOW Telemetry [OM.EQ] Routine Oth 02/08/17 13:01 Active EKG [EKG] Routine Ther 02/08/17 10:20 Draft Transfer/Admit Order [TRANSFER] Routine Transfer 02/08/17 13:07 Completed Result Diagrams: 02/08/17 11:30 02/08/17 11:30 - CT/MRI 1 CT Study: Abdomen, Pelvis Impression: See EMR Report (cholelithasis/?cholecystitis with possible right- sided colitis.) - ULTRASOUND (By Radiology) 1 US Study: Abdomen (RUQ) Impression: See EMR Report (cholecystitis with dilation of common bile duct) - CONSULTS/PCP/HOSPITALIST Notification #1 *Consult/PCP/Hospitalist*: Dr. Akesr Time Discussed: 12:59 Reason/Comments: acute cholecytitis Consult Disposition: Will see in ED Departure - Departure Date of Disposition Decision: 02/08/17 Time of Disposition Decision: 13:00 DIAGNOSIS: Acute cholecystitis Disposition: ADMITTED INPATIENT 09 Certified Medical Emergency: Emergent Condition: Stable - Critical Care Note This patient required my direct & personal management of CC.: No Attestation - Physician/ TESFAYE Attestation Patient care was provided by Advanced Practice Provider:: Yes Advanced Practice Provider:: Miguel Moore Advanced Practice Provider documentation review:: The Mid-level provider documentation, treatment plan and medical decision making was reviewed by the physician who agrees with all treatment and medical decision making by the P. The physician spent face to face time with patient:: No Advanced Practice Provider documentation review:: Supervising physician onsite and consulted in the evaluation and care of this patient. The physician did not have a face to face encounter with the patient. This chart was documented by the indicated scribe, (Marilou Machuca, Moustapha) and accurately reflects the services I performed and decisions made by me, Miguel Moore PA, as attested by the provider's signature.
--- NOTE | 2017-02-08 20:58 | HISTORY AND PHYSICAL ---
CHIEF COMPLAINT: Right-sided back pain. HISTORY OF PRESENT ILLNESS: This is a 81-year-old female who presents to the emergency room today with acute onset of severe right lower back pain for the last 4 days. It is associated also with right lower quadrant pain, nausea and some constipation. However, her last bowel movement was yesterday. She denies fever or shaking chills. The pain is worse with movement. It has been helped some with morphine in the ER. She has had no prior similar episodes to this. PAST MEDICAL HISTORY: 1. 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 Follow-up with Dr. Mills. 2. Paroxysmal atrial fibrillation. 3. Hypertension. 4. Urinary incontinence. PAST SURGICAL HISTORY: 1. Bilateral tubal ligation. 2. Insertion of daniela in the right tibia. FAMILY HISTORY: Positive for diabetes, hypertension, coronary artery disease. ALLERGIES: Aloe vera. SOCIAL HISTORY: Negative for tobacco, alcohol or illicit drug use. HOME MEDICATIONS: Spironolactone 100 mg p.o. q.a.m. Lactulose 15 mL p.o. b.i.d. Lasix 20 mg p.o. b.i.d. Metamucil 0.4 mg p.o. daily. Metoprolol ER 25 mg p.o. daily. Clotrimazole/betamethasone cream 1 g topically b.i.d. Elocon cream 1 g topically b.i.d. Fosamax 70 mg p.o. every 7 days. Xifaxan 550 mg p.o. b.i.d. REVIEW OF SYSTEMS: Ten systems reviewed and negative except as noted above. PHYSICAL EXAMINATION: VITAL SIGNS: Temperature is 98.2 degrees, pulse 58, as of 1503 this afternoon, the temperature is 98 degrees, pulse 98, respirations 18, blood pressure 122/44, O2 saturation 96%. GENERAL: Well-developed elderly female who looks her stated age in no acute distress. HEENT: Normocephalic, atraumatic. Pupils equal, round, reactive to light. Sclerae anicteric. Moist mucous membranes. NECK: Supple. No thyromegaly. CARDIOVASCULAR: Regular rate and rhythm. RESPIRATORY: Bilateral equal breath sounds. No work of breathing. GASTROINTESTINAL: Soft, nondistended. No organomegaly or mass. She does have tenderness in the right upper and lower quadrant. No rebound or guarding. EXTREMITIES: No clubbing, cyanosis, or edema. SKIN: Warm and dry. No rash. MUSCULOSKELETAL: Moves all extremities equally and well. LABORATORY: White blood cell count 8.3, hemoglobin 12.2, hematocrit 36, platelet count 111,000. INR 1.3, sodium 134, potassium 4.1, chloride 98, CO2 26, BUN 21, creatinine 0.8, glucose 133, total bilirubin 2.6, AST 53, ALT 35, alkaline phosphatase 120, lipase 52. Albumin 3. Urinalysis unremarkable. IMAGING: CT of the abdomen and pelvis was performed which shows cholelithiasis and some inflammatory fat-stranding around the gallbladder in the ascending colon or the hepatic flexure of the colon. There is also some fat-stranding around the cecum. She has cirrhosis with varices and mild ascites. This is a concern for cholecystitis and colitis. ASSESSMENT/PLAN: A 81-year-old female with abdominal pain and back pain and imaging findings concerning for cholecystitis or colitis. We will admit her for bowel rest and IV antibiotics. I am going to check a HIDA scan in the morning and consult Dr. Mills who knows her and follows her for her cirrhosis. cc: Kian Rojas MD
[2017-02-08] MEDS: LASIX PO SCH (23:39)
[2017-02-08] MEDS: XIFAXAN PO SCH (23:39)
[2017-02-08] MEDS: LACTULOSE PO SCH (23:39)
[2017-02-08] MEDS: LOTRISONE CREAM TOP SCH (23:40)
[2017-02-08] MEDS: ELOCON CREAM TOP SCH (23:40)
--- NOTE | 2017-02-09 08:01 | Diag Imaging Result Doc PS360 ---
EXAM: HIDA SCAN W/O EJECT. FRACTION HISTORY: abdominal pain, possible cholecystitis TECHNIQUE: 5.5 mCi technetium Choletec administered COMPARISON: None. FINDINGS: There is prompt uptake of radiopharmaceutical within the liver. There is normal filling of the gallbladder with emptying into the small bowel. IMPRESSION: Normal HIDA scan. Electronically signed by Brenden Garay 02/09/2017 7:58 AM
[2017-02-09] MEDS: MORPHINE IV PRN ×3 (08:55→20:45)
[2017-02-09] MEDS: TOPROL XL PO SCH (08:55)
--- NOTE | 2017-02-09 09:05 | ED EKG INTERP ---
This chart was entered by Marilou Machuca Scribe, acting as scribe for Barry Hollingsworth MD. EKG Interpretation - EKG Time of EKG reading by physician:: 10:20 EKG Read and Signed by:: Barry Hollingsworth EKG Interpretation (*Must complete 3 of following elements*): Abnormal Rate: 54 Rhythm: sinus bradycardia with premature atrial complexes [place]: normal Comments: low-voltage QRS; cannot rule out anterior infarct, age undetermined Attestation - Physician/ TESFAYE Attestation Patient care was provided by Advanced Practice Provider:: No The physician spent face to face time with patient:: Yes Advanced Practice Provider documentation review:: Supervising physician onsite and consulted in the evaluation and care of this patient. The physician did have a face to face encounter with the patient. This chart was documented by the indicated scribe, (Marilou Machuca Scribe) and accurately reflects the services I performed and decisions made by me, Barry Hollingsworth MD, as attested by the provider's signature.
[2017-02-09 10:59] LABS: ALBUMIN 3.2 g/dL (3.5-5.0); CALCIUM 9.3 mg/dL (8.8-10.2); POTASSIUM 4.3 mmol/L (3.5-5.1); TOTAL BILIRUBIN 3.38 mg/dL (0.20-1.00); TOTAL PROTEIN 5.5 g/dL (6.3-8.3)
[2017-02-09] MEDS: LOTRISONE CREAM TOP SCH (11:50)
[2017-02-09] MEDS: ELOCON CREAM TOP SCH (11:50)
[2017-02-09] MEDS: LACTULOSE PO SCH ×2 (14:46→16:52)
[2017-02-09] MEDS: ALDACTONE PO SCH (14:46)
[2017-02-09] MEDS: METAMUCIL POWDER PACKET PO SCH (14:46)
[2017-02-09] MEDS: XIFAXAN PO SCH ×2 (14:46→20:45)
[2017-02-09] MEDS: PROTONIX IV SCH (14:46)
[2017-02-09] MEDS: SODIUM CHLORIDE 0.9% INJ SCH (14:46)
[2017-02-09] MEDS: LASIX PO SCH ×2 (14:47→20:45)
[2017-02-09] MEDS ORDERED: DULCOLAX PR ONE ×2 (15:20→17:00)
--- NOTE | 2017-02-09 17:57 | CONSULTATION ---
DATE OF CONSULTATION: 02/09/2017 REASON FOR CONSULTATION: Cirrhosis and possibility of colitis and constipation. HISTORY OF PRESENT ILLNESS: Ms. Koenig is a 81-year-old who was admitted on with symptoms of abdominal pain in the right side, radiating to the right lower back. The patient has a known history of liver cirrhosis attributed to fatty liver disease. She has been following up with me as an outpatient. The patient has history of chronic constipation which has gotten worse. The patient says she takes lactulose as needed and her last bowel movement was on Tuesday and at that time, she had to take an extra laxative to induce a bowel movement. She has had EGD/colonoscopy done within the year. We will try to obtain the records from my office. She denies any nausea, vomiting, vomiting blood, passing blood in the stools. Since being in the hospital, she has not a bowel movement yet. She had imaging done which showed evidence of cholelithiasis and chronic cholecystitis and possible colitis in the right colon. She also was noted to have cirrhosis, varices and mild ascites. Dr. Rojas admitted her for possible workup and treatment. Gastroenterology was consulted for management of cirrhosis and evaluation for colitis. Patient denies any blood in the stools or black stools. The patient denies any history of use of NSAIDs at home. PAST MEDICAL HISTORY: 1. 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 2. Paroxysmal atrial fibrillation. 3. Hypertension. 4. Urinary incontinence. 5. Constipation. 6. Reflux disease. PAST SURGICAL HISTORY: Bilateral tubal ligation. Insertion of daniela in the right tibia. EGD/colonoscopy done a year ago approximately. FAMILY HISTORY: Positive for diabetes, hypertension, coronary artery disease. ALLERGIES: Aloe vera. SOCIAL HISTORY: She lives at home. She has a very supportive family at bedside. She denies history of alcohol, tobacco or illicit drugs. USUAL MEDICATIONS AT HOME: 1. Aldactone 100 mg once a week. 2. Lasix 20 mg p.o. b.i.d. 3. Metamucil 1 tablespoon at bedtime. 4. Lactulose 15 mL p.o. b.i.d. 5. Clotrimazole/betamethasone cream 1 mg topical b.i.d. 6. Elocon cream 1 g topical b.i.d. 7. Fosamax 70 mg every 7 days. 8. Xifaxan 550 mg p.o. b.i.d. MEDICATIONS IN THE HOSPITAL: 1. Bisacodyl 10 mg per rectal at bedtime. 2. Fosamax 17 mg p.o. q.7 days. 3. Clotrimazole betamethasone 1 g topical b.i.d. 4. Lasix 40 mg p.o. b.i.d. 5. Lactulose 30 mL p.o. t.i.d. 6. Metoprolol 25 mg p.o. daily. 7. Mometasone fumarate 1 g topical b.i.d. 8. Morphine 2 mg IV q.2 hours as needed. 9. Zofran 4 mg IV q.4 hour as needed. 10. Protonix 40 mg IV once daily. 11. Metamucil 1 tablespoon p.o. daily. 12. Xifaxan 550 mg p.o. b.i.d. 13. Spironolactone 100 mg daily. She is on a clear liquid diet. REVIEW OF SYSTEMS: She denies any current fevers, rigors, chills, chest pain, shortness of breath, dyspnea, denies any vomiting blood. Does have nausea and decreased p.o. intake. Worsening constipation. Does have history of arthritis. Denies any neurologic complaints. PHYSICAL EXAMINATION: Vital signs: Temperature 99.4, pulse rate 60, respiratory rate 18, blood pressure 122/60, saturating 92% on room air. Body weight of 182 pounds. BMI of 27.7 kg/m2. General Appearance: Moderately built, moderately nourished, lying in bed, in no acute distress. HEENT: Mild pallor. No icterus. Pupils equal, react to light. Neck: Supple. Chest: Decreased. Cardiac: Regular rate and rhythm. Abdomen: Mildly protuberant. Mild discomfort in the right mid abdomen. Bowel sounds are hypoactive at present. Extremities: No cyanosis, clubbing. Neurologic: She is alert, awake, oriented. LABORATORY: Hemoglobin and hematocrit is 12.2, 36.2, white count 8.3, platelet count of 111,000, MCV 101.7. INR 1.3, PT of 13.9. Sodium of 137, potassium 4.3, chloride 100, bicarb 25, anion gap 12, BUN of 23, creatinine 0.9, glucose of 100. Calcium 9.2, total bilirubin is 3.38, AST 48, ALT 33, alkaline phosphatase 117. Total protein 5.2, albumin of 3.2. Ammonia 26, lipase of 52. IMAGIN. She had abdominal ultrasound done on 02/06/2017 which showed: 1) cirrhosis. 2) Cholecystitis. 3) Dilation of common bile duct, which may indicate a distal common bile duct stone, obstructing stones. 2. Pelvic CT done on 02/06/2017: edema about the cecum consistent with colitis. Numerous diverticula of the sigmoid colon. Trace free fluid. Urinary, bladder, uterus rectum are grossly normal. 3. CT scan of the abdomen on 02/06/2017 showed cholelithiasis, the possibility of cholecystitis. A right-sided colitis cannot be excluded. Cirrhosis with varices and mild ascites noted. IMPRESSION AND PLAN: 1. Right side abdominal pain, likely secondary to chronic cholecystitis and constipation. 2. Right-sided colitis of unclear etiology. Could be ischemic as the patient has been severely constipated. 3. Diverticulosis of left colon. 4. Cirrhosis. Fatty liver, complicated with mild ascites and varices and encephalopathy. 5. Chronic worsening constipation. RECOMMENDATIONS: 1. We will check the stool studies to evaluate any etiology for colitis. 2. We will increase lactulose 30 mL t.i.d. and hold for more than 3 bowel movements per 24 hours. We will give her a dose of Dulcolax now and give 1 dose at bedtime. 3. We will continue home medicines with Aldactone, Lasix, Xifaxan. We will start her on gastrointestinal prophylaxis with proton pump inhibitor. We will try to obtain the records of EGD and colonoscopy in my office. 4. HIDA scan is normal. Dr Rojas is planning to perform cholecystectomy as an outpatient after conservative treatment with antibiotics at this time. We will try resolve her constipation before she leaves the hospital. The above plan was discussed with the patient and family at bedside. Further recommendations to follow pending the hospital course. cc: MD Kian Magdaleno MD Kenneth E. Mashburn, MD MTDD
--- NOTE | 2017-02-09 18:10 | PROGRESS NOTE ---
DATE: 02/09/2017 SUBJECTIVE: The patient continues to complain of some right-sided abdominal pain and right back pain. OBJECTIVE: Vital signs: She is afebrile. Vital signs are stable. General: She is alert and oriented x4. No acute distress. GI: Soft, mild tenderness in the right upper and lower quadrants. No rebound or guarding. She is nondistended. LABORATORY: Complete metabolic profile reviewed and notable for total bilirubin of 3.4, AST 48, ALT 33, alkaline phosphatase 117. IMAGING: HIDA scan today was normal. Specifically, no cystic duct obstruction. ASSESSMENT AND PLAN: This is a 81-year-old female with chronic calculous cholecystitis and right- sided colitis. This is in the setting of moderate chronic liver disease secondary to fatty liver. She is of moderate surgical risk per discussion with Dr. Mills. Her INR is acceptable at this time. I am planning a laparoscopic cholecystectomy in 2 days. We will continue her antibiotics, but changed to Levaquin and Flagyl to treat the cholecystitis and a colitis. I discussed the risks, benefits, and alternatives with her, including bleeding, infection, injury to surrounding organs, such as the liver, bile duct or intestines, incisional hernia, and other imponderables. She understands and agrees to proceed. cc: Kian Rojas MD
[2017-02-09] MEDS: LEVAQUIN 500 MG/D5W 500 MG/100 ML IVPB IV SCH (18:19)
[2017-02-09] MEDS: NS 1,000 ML IV SCH (18:24)
[2017-02-09] MEDS: ZOFRAN IV PRN (20:45)
[2017-02-09] MEDS: FLAGYL PO SCH (20:45)
[2017-02-10] MEDS: FLAGYL PO SCH ×5 (04:17→22:18)
[2017-02-10] MEDS: ELOCON CREAM TOP SCH ×3 (07:52→22:19)
[2017-02-10] MEDS: LOTRISONE CREAM TOP SCH ×3 (07:53→22:19)
[2017-02-10] MEDS ORDERED: FOSAMAX PO SCH (09:00)
[2017-02-10] MEDS: MORPHINE IV PRN ×2 (09:58→16:37)
[2017-02-10] MEDS: ZOFRAN IV PRN (09:59)
[2017-02-10] MEDS: TOPROL XL PO SCH (10:04)
[2017-02-10] MEDS: LACTULOSE PO SCH ×3 (10:04→17:56)
[2017-02-10] MEDS: LASIX PO SCH ×2 (10:04→22:18)
[2017-02-10] MEDS: METAMUCIL POWDER PACKET PO SCH (10:04)
[2017-02-10] MEDS: XIFAXAN PO SCH ×2 (11:01→22:18)
[2017-02-10] MEDS: ALDACTONE PO SCH (11:01)
[2017-02-10] MEDS: PROTONIX IV SCH ×2 (12:53→17:12)
[2017-02-10] MEDS ORDERED: GOLYTELY PO ONE (14:13)
[2017-02-10] MEDS: NS 1,000 ML IV SCH (17:56)
[2017-02-10] MEDS: LEVAQUIN 500 MG/D5W 500 MG/100 ML IVPB IV SCH (17:56)
--- NOTE | 2017-02-10 18:13 | PROGRESS NOTE ---
DATE: 02/10/2017 SUBJECTIVE: Patient currently resting in bed. Family present at bedside. She denies any fevers, rigors, or chills. She denies any nausea, vomiting. She feels constipated and bloated. We have tried lactulose with partial success. The patient is getting ready for cholecystectomy tomorrow by Dr. Rojas. OBJECTIVE: Vital signs: Temperature 97.7, pulse rate 70, respiratory rate 18, blood pressure 130/56. Saturating 99% on room air. General Appearance: Moderately build, moderately nourished, lying in bed, in no acute distress. HEENT: Mild pallor. No icterus. Neck: Supple. Abdomen: Protuberant. Mild distention noted. No guarding or rebound. Bowel sounds present. Extremities: No cyanosis, clubbing. Neurologic: She was awake, alert, oriented. LABORATORY: Hemoglobin and hematocrit 12.2 and 36.2, white count of 8.3, platelet count of 111,000. Sodium 137, potassium 4.3, chloride 100, bicarb 25, anion gap 12, BUN of 23, creatinine 0.9, glucose of 100, calcium 9.3, total bilirubin is 3.38. AST 48, ALT 33, alkaline phosphatase 170, total protein 5.5, albumin of 3.2. Ammonia of 26. IMPRESSION AND PLAN: 1. Fatty liver cirrhosis. Currently stable. We will continue on her regular medications in the form of lactulose, Xifaxan, Aldactone, Lasix. 2. Constipation. We will give her 2 soapsuds enemas now and 1 at bedtime. We will start her on GoLYTELY, 1 gallon to help with her constipation. 3. Diverticulosis of left colon. The patient was again encouraged to increase the fiber intake after discharge and avoid corn, nuts, and seeds in diet. 4. Chronic cholecystitis, getting ready for cholecystectomy tomorrow. 5. Right-sided colitis of unclear etiology. Could be ischemic. The patient is very constipated. If this does not resolve, we may have to do a colonoscopy in 4-6 weeks from now. 6. Above plan discussed with the patient and family and all questions were answered. 7. We will continue on gastrointestinal prophylaxis with PPIs. 8. Further recommendation to follow pending the hospital course. cc: Dusty MillsMD Kian MD Kenneth E. Mashburn, MD
--- NOTE | 2017-02-10 18:56 | PROGRESS NOTE ---
DATE: 02/10/2017 SUBJECTIVE: The patient complains of some right-sided abdominal pain and bloating and constipation. No nausea or vomiting. OBJECTIVE: Vital signs: She is afebrile. Vital signs are stable. General: Alert and oriented x3. No acute distress. GI: Soft, mild distention and tympany is noted. She is tender in the right side of her abdomen. No rebound or guarding. LABORATORY: None today. ASSESSMENT/PLAN: A 81-year-old female with chronic cholecystitis, right-sided colitis and chronic liver disease. We are planning laparoscopic cholecystectomy tomorrow. I answered her questions. cc: Kain Rojas MD
[2017-02-10] MEDS: DULCOLAX PR SCH (22:18)
[2017-02-11] MEDS: MORPHINE IV PRN ×4 (00:01→21:19)
[2017-02-11] MEDS: NS 1,000 ML IV SCH ×3 (00:02→08:05)
[2017-02-11] MEDS: FLAGYL PO SCH ×4 (03:21→21:12)
[2017-02-11] MEDS ORDERED: QUELICIN (DOSE) ONE ×2 (08:17→08:18)
[2017-02-11] MEDS ORDERED: DIPRIVAN 1% ONE (08:17)
[2017-02-11] MEDS ORDERED: ZEMURON ONE (08:17)
[2017-02-11] MEDS ORDERED: XYLOCAINE-MPF 2% ONE (08:17)
[2017-02-11] MEDS ORDERED: LR 1,000 ML ONE (08:35)
[2017-02-11] MEDS ORDERED: SENSORCAINE-MPF 0.5%/EPI 1:200,000 ONE (08:35)
[2017-02-11] MEDS ORDERED: SODIUM CHLORIDE 0.9% ONE (08:36)
[2017-02-11] MEDS ORDERED: DECADRON ONE (09:27)
[2017-02-11] MEDS ORDERED: ROBINUL ONE (09:27)
[2017-02-11] MEDS ORDERED: ZOFRAN ONE ×2 (09:27→11:05)
[2017-02-11] MEDS ORDERED: NEOSTIGMINE ONE (09:27)
[2017-02-11] MEDS: ALDACTONE PO SCH (10:11)
[2017-02-11] MEDS: LASIX PO SCH ×2 (10:11→21:13)
[2017-02-11] MEDS: ELOCON CREAM TOP SCH ×2 (10:11→23:34)
[2017-02-11] MEDS: LACTULOSE PO SCH ×3 (10:11→18:36)
[2017-02-11] MEDS: METAMUCIL POWDER PACKET PO SCH (10:12)
[2017-02-11] MEDS: LOTRISONE CREAM TOP SCH ×2 (10:12→23:35)
[2017-02-11] MEDS: TOPROL XL PO SCH (10:12)
[2017-02-11] MEDS: XIFAXAN PO SCH ×2 (10:12→21:13)
[2017-02-11] MEDS ORDERED: ULTRAM PO PRN (10:19)
[2017-02-11] MEDS ORDERED: MORPHINE ONE (10:36)
--- NOTE | 2017-02-11 12:21 | OPERATIVE NOTE ---
PROCEDURE DATE: 02/11/2017 PREOPERATIVE DIAGNOSES: 1. Chronic cholecystitis and right-sided colitis. 2. Chronic liver disease and cirrhosis. POSTOPERATIVE DIAGNOSES: 1. Chronic cholecystitis and right-sided colitis. 2. Chronic liver disease and cirrhosis. PROCEDURE: Laparoscopic cholecystectomy with operative cholangiogram. SURGEON: Kian Rojas MD. ANESTHESIA: General. ESTIMATED BLOOD LOSS: 15 mL. COMPLICATIONS: None apparent. SPECIMENS: Gallbladder. FINDINGS: The gallbladder was very distended due to a large impacted gallstone and multiple small gallstones down in the neck of the gallbladder. The gallstone was eroding through a very thin- walled gallbladder with near rupture at the time of surgery. The cholangiogram revealed normal proximal hepatic radicles and distal common bile duct. There was flow of contrast into the duodenum. No filling defects or stenoses were appreciated. The liver was quite nodular. There was some peritoneal irritation along the surfaces of the distal small bowel and cecum. The cecum and ascending colon did not appear to be ischemic at least not on the serosa. TECHNIQUE: The patient was brought to the operating room and placed supine on the table. General anesthesia was induced. She was prepped and draped in usual sterile fashion. 0.5% Marcaine with epinephrine was used to anesthetize our incisions. An 11 mm incision was made above the umbilicus. The fascia was exposed and incised sharply. She was placed in reverse Trendelenburg and left rotation. The 5 mm incision and ports were placed in the epigastric and right upper quadrant under direct vision per usual routine. The dome of the gallbladder was grasped by the client services assistant with a bulldog clamp. I then punctured the gallbladder with the suction needle and aspirated out some bile for better retraction and mobility. We lifted up the gallbladder and the liver, and began dissecting along the infundibulum. There was a very large impacted gallstone trying to erode through the wall of the gallbladder down near the neck. It was very thin walled as I grasped in this area for retraction. The wall of the gallbladder easily tore and multiple stones did spill out. I spent a good deal of time during the case retrieving the stones. I did upsize my epigastric port site to an 11 mm port, so I could use a stone forceps to pick them out one by one. The very large gallstone was tucked over in the right pericolic gutter and was retrieved at the end of the case in the EndoCatch bag. I dissected in the triangle of Calot mostly bluntly with the blunt tip of the suction as well as [place] forceps and hook cautery to incise small areolar tissue. The gallbladder and liver junction was seen. There was only 2 structures entering the gallbladder, the cystic duct and cystic artery. The artery was clipped proximally and distally and incised between with scissors. A clip was placed on the distal cystic duct. A ductotomy was made proximal to this with scissors. A 14-gauge Angiocath was passed through the right upper quadrant. The Taut cholangiogram catheter was passed through this into the cystic duct and held in place with a clip. The cholangiogram was performed with findings as noted above. The clip, catheter, and Angiocath were then removed. Three clips were placed on the proximal cystic duct, and it was divided distal to these 3. The gallbladder was taken off the liver bed using hook cautery, obtaining hemostasis along the way. The gallbladder was then placed in an EndoCatch bag along with the large gallstone. We then irrigated with saline copiously and suctioned out the old blood, bile, and irrigant. There were minut specks of sludge along the omentum and surface of the peritoneum, but no large stones were left behind. I then brought the gallbladder and bag out through the umbilical port site and desufflated the abdomen, removed the ports. The umbilical fascia was closed with a running 0 Vicryl. The skin was closed with running 4-0 subcuticular Monocryl and Steri-Strips. The epigastric fascia was also closed with a simple interrupted 0 Vicryl. She tolerated this well. There are no apparent complications. cc: Kian Rojas MD
[2017-02-11] MEDS: SODIUM CHLORIDE 0.9% INJ SCH (14:22)
[2017-02-11] MEDS: PROTONIX IV SCH (14:22)
[2017-02-11] MEDS: ZOFRAN IV PRN (16:04)
[2017-02-11] MEDS: LEVAQUIN 500 MG/D5W 500 MG/100 ML IVPB IV SCH (18:36)
[2017-02-11] MEDS: PERIDEX MT SCH (21:12)
[2017-02-11] MEDS: DULCOLAX PR SCH (21:13)
[2017-02-12] MEDS: FLAGYL PO SCH ×4 (02:43→21:25)
[2017-02-12] MEDS: NS 1,000 ML IV SCH (04:44)
[2017-02-12] MEDS: MORPHINE IV PRN ×5 (06:21→21:24)
[2017-02-12] MEDS: ZOFRAN IV PRN (10:25)
[2017-02-12] MEDS: LACTULOSE PO SCH ×3 (10:31→17:01)
[2017-02-12] MEDS: ALDACTONE PO SCH (10:32)
[2017-02-12] MEDS: TOPROL XL PO SCH (10:32)
[2017-02-12] MEDS: XIFAXAN PO SCH ×2 (10:32→21:25)
[2017-02-12] MEDS: LASIX PO SCH ×2 (10:32→21:25)
[2017-02-12] MEDS: METAMUCIL POWDER PACKET PO SCH (10:33)
[2017-02-12] MEDS: PERIDEX MT SCH ×2 (10:33→21:25)
--- NOTE | 2017-02-12 11:31 | PROGRESS NOTE ---
DATE: 02/12/2017 SUBJECTIVE: Feels okay. She is sore at her incisions. She is tolerating some p.o. with bowel function. OBJECTIVE: Vital Signs: No fevers. No tachycardia. Blood pressure 124/52. Oxygen saturation 96% on room air. General: She is alert, in no acute distress. Incision is clean, dry, and intact. Abdomen: She is appropriately tender. Nondistended. No peritonitis. I do not see any jaundice. ASSESSMENT AND PLAN: I reviewed her labs. Her bilirubin was up slightly on the preoperatively. We will repeat that. I think we can advance her diet. She does have an underlying known cirrhosis. We will observe her today, but as she progresses, we may be able to work towards discharge. We will limit her fluids. Dr. Mills is following, helping manage her cirrhosis. We will continue to follow along. cc: MD Kian Rossi MD
[2017-02-12] MEDS: OXY IR PO PRN ×2 (11:55→18:58)
[2017-02-12] MEDS: PROTONIX IV SCH (14:02)
[2017-02-12] MEDS: SODIUM CHLORIDE 0.9% INJ SCH (14:02)
[2017-02-12] MEDS: ELOCON CREAM TOP SCH (14:04)
[2017-02-12] MEDS: LOTRISONE CREAM TOP SCH ×2 (14:04→21:25)
[2017-02-12] MEDS: LEVAQUIN 500 MG/D5W 500 MG/100 ML IVPB IV SCH (17:01)
[2017-02-12] MEDS: DULCOLAX PR SCH (21:34)
[2017-02-13] MEDS: ELOCON CREAM TOP SCH ×2 (01:28→10:01)
[2017-02-13] MEDS: FLAGYL PO SCH ×2 (01:38→09:54)
[2017-02-13] MEDS: OXY IR PO PRN ×3 (01:39→09:54)
[2017-02-13] MEDS: ZOFRAN IV PRN ×2 (05:31→09:54)
[2017-02-13 06:54] LABS: MANUAL DIFF NEEDED? NO
[2017-02-13 07:03] LABS: EOS# 0.08 X1000 (0.0-0.7); HEMATOCRIT 33.4 % (37.0-47.0); HEMOGLOBIN 11.6 g/dL (12.0-16.0); IMM GRAN# 0.04 X1000 (0.0-0.04); IMM GRAN% 0.5 % (0.0-0.5); LYMPH# 1.06 X1000 (1.2-3.4); LYMPH% 13.2 % (20.5-51.1); MCH 35.2 PG (27-31); MCHC 34.7 g/dL (33-37); MCV 101.2 FL (81-99); MONO# 1.14 X1000 (0.11-0.59); MONO% 14.2 % (1.7-9.3); MPV 8.9 FL (7.4-10.4); NEUT% 71.1 % (42.2-75.2); PLT 98 X1000 (130-400)
[2017-02-13 07:26] LABS: AGAP 10; ALBUMIN 2.4 g/dL (3.5-5.0); ALKALINE PHOSPHATASE 89 U/L (32-104); BUN 23 mg/dL (8-22); CHLORIDE 100 mmol/L (98-107); COSMO 278; GOT 45 U/L (10-30); GPT 29 U/L (10-36); POTASSIUM 3.4 mmol/L (3.5-5.1); SODIUM 137 mmol/L (136-145); TCO2 27 mmol/L (25-35); TOTAL BILIRUBIN 3.35 mg/dL (0.20-1.00); TOTAL PROTEIN 4.8 g/dL (6.3-8.3)
[2017-02-13] MEDS: METAMUCIL POWDER PACKET PO SCH (09:54)
[2017-02-13] MEDS: PERIDEX MT SCH (09:54)
[2017-02-13] MEDS: LACTULOSE PO SCH ×2 (09:54→13:31)
[2017-02-13] MEDS: XIFAXAN PO SCH (09:54)
[2017-02-13] MEDS: LASIX PO SCH (09:54)
[2017-02-13] MEDS: ALDACTONE PO SCH (09:54)
[2017-02-13] MEDS: TOPROL XL PO SCH (09:55)
[2017-02-13] MEDS: LOTRISONE CREAM TOP SCH (10:00)
[2017-02-13 11:21] VITALS: BP 123/49
--- NOTE | 2017-02-13 14:54 | PROGRESS NOTE ---
DATE: 02/13/2017 SUBJECTIVE: Feels better, she is up in the chair this morning. She is tolerating a diet clear liquids. Pain is improving with oxycodone. OBJECTIVE: No fevers. No tachycardia. Blood pressure is 154/39, oxygen saturation 98% on room air. Abdomen soft, appropriately tender. Incision clean, dry and intact. Her repeated labs this morning white count normal at 8, hematocrit stable at 33, bilirubin is improved down 3.35 from her preoperative level, transaminases are stable as well. 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 She is doing okay from a surgical standpoint. Will advance her diet to soft and I think she is okay to go home. Will follow up with Dr. Rojas, I gave them detailed postoperative instructions. Her daughter is a nurse and understands all these, I have given a prescription for oxycodone, Colace and Zofran for pain and nausea and stool softener, I have encouraged her to limit these much as possible and avoid heavy lifting greater than 10 pounds. If she develops any other problems fevers, nausea, vomiting to call right away, she can see Dr. Rojas next 1 2 weeks in office. cc: MD Kian Rossi MD
--- NOTE | 2017-02-15 07:51 | Diag Imaging Result Doc PS360 ---
OPERATIVE CHOLANGIOGRAM - 02/11/2017 INDICATION: GALLBLADDER DZ TECHNIQUE: The exam was performed by the patient's surgeon. One image was submitted. COMPARISON: CT from 02/08/2017 FINDINGS: Contrast was infused into the cystic duct. This outlines a normal common bile duct with good passage of contrast into the duodenum. IMPRESSION: No complication. Electronically signed by Fransisco June 02/15/2017 7:48 AM
--- NOTE | 2017-03-29 18:48 | DISCHARGE SUMMARY ---
ADMISSION DATE: 02/08/2017 DISCHARGE DATE: 02/13/2017 PROCEDURE PERFORMED: Laparoscopic cholecystectomy on 02/[address] Rojas. HISTORY OF PRESENT ILLNESS: This is a 81-year-old female with cirrhosis and cholelithiasis, who underwent laparoscopic cholecystectomy with Dr. Rojas. For details please see dictated operative note. Postoperatively, she was admitted and she had a relatively slow postoperative course. LFTs did kind of fluctuate likely related to her chronic liver disease. Her diet was advanced. She tolerated this. Incisions were intact and she was tolerating a diet. She was felt safe for discharge home. Follow up with Dr. Rojas in the next 1-2 weeks. DISPOSITION: Home to self-care. DISCHARGE INSTRUCTIONS: She was given written detailed postoperative instructions regarding what to look out for. Diet GI soft. Discharge medications: Continue taking her home medications. cc: MD Kian Rossi MD
== END 2017-02-13 13:32 | disposition home or self-care (01) ==
LOC: ED 09:37 → 4N 13:42
PROVIDERS: ADMIT Surgery; ATTEND Surgery